=== PATIENT | female | born 1985 | race African-American/Black ===

== ENCOUNTER 2017-07-07 12:24 | Day surgery (SDC) | payer OTHER ==
[2017-07-07 12:58] VITALS: BMI 33.0
[2017-07-07 13:24] LABS: #Eosinphils 0.1 thou/uL (0.0-0.7); #Lymphocytes 2.3 thou/uL (1.20-3.40); #Monocytes 1.3 thou/uL (0.11-0.59); #Neutrophils 6.4 thou/uL (1.40-6.50); %Basophils 0.3 % (0.0-1.0); %Eosinophils 0.9 % (0.0-10.0); %Lymphocytes 22.8 % (21.0-51.0); %Monocytes 12.6 % (0.0-10.0); %Neutrophils 63.4 % (42.0-75.0); Hemoglobin 9.8 g/dL (12.0-16.0); Mean Corpuscular HGB CONC 32.2 g/dL (32.0-36.0); Mean Corpuscular Volume 80.7 fl (81.0-99.0); Mean Platelet Volume 6.5 fL (7.4-10.4); Platelet Count 283 thou/uL (130-400); RBC Distribution Width 13.7 % (11.5-14.5); Red Blood Cell (RBC) Count 3.78 mill/uL (4.20-5.40)
[2017-07-07 13:45] LABS: ALT (SGPT) 30 U/L (8-55); AST (SGOT) 31 U/L (5-34); Albumin 3.3 g/dL (3.5-5.0); Alkaline Phosphatase 54 U/L (40-150); Anion Gap 8 mmol/L (10-20); BUN (Urea Nitrogen) 5 mg/dL (7.0-18.7); Bilirubin, Total 0.3 mg/dL (0.2-1.2); Calc. Creatinine Clearance 177 mL/min (70-130); Calcium 8.6 mg/dL (7.8-10.44); Carbon Dioxide 24 mmol/L (22-29); Chloride 109 mmol/L (98-107); Estimated GFR-MDRD Greater than 90; Globulin 3.1 g/dL (2.4-3.5); Glucose 73 mg/dL (70-105); Potassium 3.5 mmol/L (3.5-5.1); Protein, Total 6.4 g/dL (6.0-8.3); Sodium 137 mmol/L (136-145)
[2017-07-07 13:56] LABS: Bilirubin Negative (Negative); Blood, Urine Negative (Negative); Clarity CLEAR (Clear); Glucose, Urine (Dipstick) Negative (Negative); Leukocyte Small (Negative); Nitrite Negative (Negative); Protein, Urine (Dipstick) Negative (Neg-Trace); Specific Gravity, Urine 1.024 (1.002-1.036); pH, Urine 7.5 (5.0-9.0)
[2017-07-07 14:00] LABS: Bacteria/HPF Rare-Few HPF (None Seen); Hyaline Casts/LPF 0-3 HYALINE CAST LPF (0-3 Hyaline); Pathc Cast-AUWi Flag 0.27 (0-2.49); WBC/HPF 0-3 HPF (0-3)
[2017-07-07 14:11] LABS: RBC/HPF 0-3 HPF (0-3)
--- NOTE | 2017-07-07 14:13 | ULT ---
GALLBLADDER ULTRASOUND: CLINICAL HISTORY: Right upper quadrant pain. FINDINGS: Nonspecific mild increased echogenicity of the hepatic parenchyma is present. This may relate to hep atic steatosis. No acute gallbladder pathology. The common duct measures 3-4 mm in size, which is n ormal. There is no ascites. Stephen's sign report is negative. IMPRESSION: 1. No acute abnormality of the right upper quadrant. 2. There is a mild degree of nonspecific increased echogenicity of the hepatic parenchyma. This cou ld be further assessed with dedicated liver function enzymes as necessary. POS: DIEGO
--- NOTE | 2017-07-07 18:05 | PRG ---
DATE OF SERVICE: 07/07/2017 TIME OF SERVICE: 1500 hours. PRESENTING COMPLAINT: Right upper quadrant pain at 24 weeks gestation. HISTORY OF PRESENT ILLNESS: Ms. Haines is a 32-year-old 3, para 2, EDC of 10/27/2017, sees Dr Hilaria Ramos at [facility]. She reports 2 weeks or right upper quadrant pain. Denies nausea or vomi ting. Denies bleeding. Denies headache, blurred vision, or scotoma. She reports an uncomplicated p regnancy. OB AND TAXATION AGENT HISTORY: x2. No history of complications. Antepartum record not available . PAST MEDICAL HISTORY: None. PAST SURGICAL HISTORY: None. ALLERGIES: Denies. MEDICATIONS: vitamins. SOCIAL HISTORY: Denies tobacco, alcohol, or drug abuse. FAMILY HISTORY AND REVIEW OF SYSTEMS: Noncontributory. PHYSICAL EXAMINATION: GENERAL: Black female, in no acute distress. VITAL SIGNS: Blood pressure 133/82, temperature 98.4, respirations 18, pulse 85. HEENT: Within normal limits. LUNGS: Clear to auscultation bilaterally. HEART: Regular rhythm. ABDOMEN: Soft and nontender. She reports discomfort with palpation of the right upper quadrant; how ever, no rebound or guarding is noted. Her uterus is soft. FHTs are 130s to 140s with a category 1 heart rate tracing. PELVIC: Deferred. EXTREMITIES: Without clubbing, cyanosis, or edema. LABORATORY STUDIES: White count is 10.0, hematocrit is 30.5, hemoglobin is 9.8, normal differential. Comp met is within normal limits. Clean catch UA is negative and an abdominal ultrasound reveals n o acute abnormality of the gallbladder or right upper quadrant. There is mildly increased echogenici ty of hepatic parenchyma, which may be related to hepatic steatosis. However, the patient's liver en zymes did not present any evidence of hepatic steatosis. IMPRESSION: Nondescript right upper quadrant pain, no evidence of acute liver, gallbladder abnormali ty at 24 weeks gestation. PLAN: Discharge home. The patient to keep scheduled followup with Dr. Ramos.
== END 2017-07-07 15:25 | disposition home or self-care (01) ==
LOC: L&D/OP 12:24
PROVIDERS: ATTEND Obstetrics & Gynecology
DX: O99.89 Other specified diseases and conditions complicating pregnancy, childbirth and the puerperium (principal); R10.11 Right upper quadrant pain; Z3A.24 24 weeks gestation of pregnancy; Z79.899 Other long term (current) drug therapy
CPT/HCPCS: 36415; 76705; 80053; 81001; 85025